=== PATIENT | male | born 1955 | race Caucasian/White ===

== ENCOUNTER 2018-08-05 07:23 | Inpatient (IN) | END 2018-08-10 11:45 | disposition home or self-care (01) | DRG 552 ==

== ENCOUNTER 2019-01-02 12:28 | Emergency (ER) | payer OTHER ==
[~2019-01-02] VITALS: Ht 167.6 cm; Wt 105.1 kg
[~2019-01-02 12:28] MED LIST: ALLO100T PO; HYDR-3498 PO; METH500T8 PO; NIFE30TA23 PO; TRAM50TA2 PO
[2019-01-02 12:54] VITALS: Ht 167.6 cm; Wt 105.1 kg
[2019-01-02] MEDS ORDERED: LIDOCAINE 1% (MPF) 5 ML VIAL INFIL ONE (15:00)
[2019-01-02] MEDS ORDERED: SULF1TAB31 PO (16:27)
--- NOTE | 2019-01-02 16:29 | ERD ---
ER Documentation Chief Complaint Chief Complaint left 2nd digit pain from injury 1 week ago. non diabetic; toe red and swoll HPI 63-year-old male with past medical history of hypertension, gout, osteoarthritis presents for left foot second toe pain and swelling times 1 week. He states that he had an incision and drainage about a month ago after stubbing his toe. His symptoms improved initially however they have returned. Notes that he is currently on azithromycin per dentist for some type of dental procedure. Denies fever or chills. ROS All systems reviewed and are negative except as per history of present illness. Medications Home Meds Active Scripts Sulfamethoxazole/Trimethoprim* (Bactrim Ds* Tablet) 1 Each Tablet, 1 TAB PO BID for abscess/cellulitis for 7 Days, #14 TAB Prov:DERIK FELIX DO 01/02/19 Allopurinol* (Allopurinol*) 100 Mg Tablet, 100 MG PO DAILY for 30 Days, TAB Prov:CAMILO ARRIOLA 10/27/14 Reported Medications Tramadol HCl (Tramadol HCl) 50 Mg Tablet, 50 MG PO DAILY, #60 TAB 08/08/18 Methocarbamol* (Methocarbamol*) 500 Mg Tablet, 500 MG PO DAILY, TAB 08/08/18 Nifedipine* (Nifedipine ER*) 30 Mg Tablet.sa, 30 MG PO DAILY, TAB.SA 08/08/18 Hydrocodone Bit-Acetaminophen* ([place]*) 5-325 Mg Tab, 1 TAB PO Q4H PRN for PAIN, TAB 10/24/14 Allergies Allergies: Coded Allergies: Penicillins (Verified Allergy, Unknown, 10/24/14) PMhx/Soc History of Surgery: Yes Anesthesia Reaction: No Hx Neurological Disorder: No Hx Respiratory Disorders: No Hx Cardiac Disorders: Yes (HTN) Hx Psychiatric Problems: No Hx Miscellaneous Medical Probl: Yes (HTN, gout, B knee pain, arthritis) Hx Tobacco Use: No Physical Exam Vitals Vital Signs Date Temp Pulse Resp B/P (MAP) Pulse Ox O2 O2 Flow FiO2 Time Delivery Rate 01/02/19 97.9 89 18 154/82 98 12:54 (106) Physical Exam Const: No acute distress Resp: Clear to auscultation bilaterally Cardio: Regular rate and rhythm, no murmurs, left dorsalis pedis pulse intact Abd: Soft, non tender, non distended. Normal bowel sounds Skin: No petechiae or rashes Back: No midline or flank tenderness Ext: left foot 2nd toes mass with underlying fluctuance with erythema and warmth. Neur: Awake and alert, sensation intact all toes of left foot Psych: Normal Mood and Affect Results 24 hrs Current Medications Medications Dose Sig/Hcerelle Start Time Status Last (Trade) Ordered Route PRN Stop Time Admin Dose Reason Admin Lidocaine 5 ml ONCE ONCE 01/02/19 DC (Xylocaine INFIL 15:00 1% (Mpf)) 01/02/19 15:01 Procedures/MDM Abscess Incision and Drainage with irrigation by me: Location: Left second toe Anesthesia: [Local 1% Lidocaine without epinephrine] Technique: [Irrigated. Disrupted loculations w/ instrumentation] Packing: [None] Complications: [Neurovascularly intact post procedure] 48 hour wound check. Scar minimization instructions given. Patient's skin symptoms have stabilized while they have been evaluated in the department and are appropriate for outpatient care and work up. Exam and w/u not consistent w/ sepsis, deep space infection, or foreign body. Medical Decision Making: Differential diagnosis includes but not limited to left second toe abscess, cellulitis, dermatitis, allergic reaction. Patient appeared well on physical exam. There was an abscess noted on the left 2nd toes left foot x-rays showed extensive destructive osseous erosions and soft tissue swelling throughout the midfoot and forefoot. Marked hallux valgus with near- complete lateral dislocation at the first metatarsophalangeal joint. Incision and drainage was done, see procedure noted above. Prescription(s): Patient given prescription for bactrim. advised regarding wound care. advised to return to ER in 48 hours for wound check. Patient advised to follow up with PCP in 1-2 days. Patient advised to return to ED for new or worsening symptoms. Patient stable on discharge from the ED. Disclaimer: Inadvertent spelling and grammatical errors are likely due to EHR/ dictation software use and do not reflect on the overall quality of patient care. Also, please note that the electronic time recorded on this note does not necessarily reflect the actual time of the patient encounter. Departure Diagnosis: Primary Impression: Abscess Condition: Fair Patient Instructions: Abscess, Incision And Drainage Referrals: COMMUNITY CLINICS YOU HAVE RECEIVED A MEDICAL SCREENING EXAM AND THE RESULTS INDICATE THAT YOU DO NOT HAVE A CONDITION THAT REQUIRES URGENT TREATMENT IN THE EMERGENCY DEPARTMENT. FURTHER EVALUATION AND TREATMENT OF YOUR CONDITION CAN WAIT UNTIL YOU ARE SEEN IN YOUR DOCTORS OFFICE WITHIN THE NEXT 1-2 DAYS. IT IS YOUR RESPONSIBILITY TO MAKE AN APPOINTMENT FOR FOLOW-UP CARE. IF YOU HAVE A PRIMARY DOCTOR --you should call your primary doctor and schedule an appointment IF YOU DO NOT HAVE A PRIMARY DOCTOR YOU CAN CALL OUR PHYSICIAN REFERRAL HOTLINE AT IF YOU CAN NOT AFFORD TO SEE A PHYSICIAN YOU CAN CHOSE FROM THE FOLLOWING [facility] [employer] [address] [facility] [address] [employer] [facility] [address] [facility] [address] [facility] [address] [facility]. [facility]. [address] Additional Instructions: Call your primary care doctor TOMORROW for an appointment during the next 1-2 days.See the doctor sooner or return here if your condition worsens before your appointment time. DERIK FELIX DO Jan 02, 2019 16:29
[2019-01-02 17:28] VITALS: BP 132/75; PULSE 73; RESP 18
== END 2019-01-02 17:18 | disposition home or self-care (01) ==
LOC: FTE 12:28
DX: L02.612 Cutaneous abscess of left foot (principal); I10 Essential (primary) hypertension
CPT/HCPCS: 10060; 73630; Z7610

== ENCOUNTER 2019-04-28 10:22 | Emergency (ER) | payer OTHER ==
[~2019-04-28] VITALS: Ht 170.2 cm; Wt 104.0 kg
[~2019-04-28 10:22] MED LIST changes: +SULF1TAB31 PO
[2019-04-28 10:26] VITALS: Ht 170.2 cm; Wt 104.0 kg
--- NOTE | 2019-04-28 11:29 | ERD ---
ER Documentation Chief Complaint Chief Complaint ABD PAIN X FEW MONTHS , RT LEG BUMP HPI This is a 64-year-old male with a past medical history of hypertension, chronic gouty arthritis, chronic abdominal pain who is presenting for reevaluation. The patient saw his primary doctor a few days ago, but he reports that the PCP primarily speaks Chinese and he could not understand what he was saying. The patient wanted reassessment from somebody who spoke better [place]ian. The patient endorses chronic gouty arthritis. He has been noticing multiple bumps in areas where tendons are. This is been ongoing for several months. It causes discomfort but no exquisite tenderness. The patient also endorses mild epigastric discomfort. He endorses a bloating sensation, exacerbated by eating. The patient sometimes goes to lay down after this, which does not help his symptoms. The patient does not currently endorse any abdominal pain, but he was hoping to get something to help with his discomfort after eating. The patient reports that he used to take indomethacin frequently for his gout, but this led to ulceration and bleeding. Since stopping the indomethacin, the patient reports that this has resolved. The patient otherwise feels well and has no acute complaints. The patient denies feeling sick recently. The patient denies fever or chills. The patient has had no headache or vision changes. The patient does not endorse neck or back pain. The patient denies lightheadedness or dizziness. The patient has had no chest pain or trouble breathing. The patient denies nausea or vomit ing. The patient denies changes to bowel movements or urination. The patient has had no focal deficits. The patient has had no weakness or numbness or tingling to the face or extremities. ROS All systems reviewed and are negative except as per history of present illness. Medications Home Meds Active Scripts Sulfamethoxazole/Trimethoprim* (Bactrim Ds* Tablet) 1 Each Tablet, 1 TAB PO BID for abscess/cellulitis for 7 Days, #14 TAB Prov:DERIK FELIX DO 01/02/19 Allopurinol* (Allopurinol*) 100 Mg Tablet, 100 MG PO DAILY for 30 Days, TAB Prov:CAMILO ARRIOLA 10/27/14 Reported Medications Tramadol HCl (Tramadol HCl) 50 Mg Tablet, 50 MG PO DAILY, #60 TAB 08/08/18 Methocarbamol* (Methocarbamol*) 500 Mg Tablet, 500 MG PO DAILY, TAB 08/08/18 Nifedipine* (Nifedipine ER*) 30 Mg Tablet.sa, 30 MG PO DAILY, TAB.SA 08/08/18 Hydrocodone Bit-Acetaminophen* ([place]*) 5-325 Mg Tab, 1 TAB PO Q4H PRN for PAIN, TAB 10/24/14 Allergies Allergies: Coded Allergies: Penicillins (Verified Allergy, Unknown, 10/24/14) PMhx/Soc History of Surgery: Yes Anesthesia Reaction: No Hx Neurological Disorder: No Hx Respiratory Disorders: No Hx Cardiac Disorders: Yes (HTN) Hx Psychiatric Problems: No Hx Miscellaneous Medical Probl: Yes (HTN, gout, B knee pain, arthritis) Hx Alcohol Use: Yes (last time 5mos ago) Hx Substance Use: Yes (one time "Speed") Hx Tobacco Use: Yes Smoking Status: Never smoker FmHx Family History: No diabetes Physical Exam Vitals Vital Signs Date Temp Pulse Resp B/P (MAP) Pulse Ox O2 O2 Flow FiO2 Time Delivery Rate 04/28/19 98.1 90 18 166/82 99 10:26 (110) Physical Exam Const: No acute distress Head: Atraumatic Eyes: Normal Conjunctiva ENT: Normal External Ears, Nose and Mouth. Neck: Full range of motion. No meningismus. Resp: Clear to auscultation bilaterally Cardio: Regular rate and rhythm, no murmurs Abd: Obese, soft, non tender, non distended. Normal bowel sounds Skin: No petechiae or rashes Back: No midline or flank tenderness Ext: No cyanosis, or edema. Calcific tendinosis evident on various tendons. Neur: Awake and alert Psych: Normal Mood and Affect Procedures/MDM MDM The patient presents for multiple complaints. The patient's primary complaint revolves around chronic abdominal bloating exacerbated by eating. GERD versus gastritis versus PUD are all possibilities. The patient is otherwise very well-appearing with no acute pain. He does not require emergent treatment, but may benefit from outpatient management. Prescriptions will be provided. At this time, the patient does not have any tenderness on exam. The patient does not have any evidence of peritonitis. The patient does not have clinical symptoms concerning for mesenteric ischemia or ischemic colitis. The patient does not have right upper quadrant tenderness, and I have low suspicion for gallstones, cholecystitis or biliary colic. The patient does not have any epigastric pain. I have low suspicion for gastritis, PUD or GERD. The patient does not have left upper quadrant tenderness. I have low suspicion for pancreatitis. The patient does not have any right lower quadrant tenderness, or periumbilical tenderness. I have low suspicion for appendicitis. The patient does not have suprapubic tenderness. I have decreased suspicion for cystitis. The patient does not have any left lower quadrant tenderness, and I have low suspicion for diverticulosis or diverticulitis. The patient does not have any flank tenderness. The patient does not have gross hematuria. I have decreased suspicion for nephrolithiasis or renal colic. The patient does not have any palpable pulsatile mass or severe abdominal pain radiating to the back. I have low suspicion for aortic aneurysm, dissection or rupture. The patient also wanted to have his extremities evaluated for bumps that he is noticed on various tendons. I do suspect calcific tendinosis. The patient may have an autoimmune disorder, such as rheumatoid arthritis. He does report having gouty arthritis. 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 I do not see any evidence of cellulitis or abscess or other soft tissue infection. I believe that the patient may follow-up with his physicians as scheduled. TREATMENT/DISPOSITION The patient did not require any emergent treatment. DISCHARGE Upon reevaluation of the patient, symptoms have improved. No emergent diagnoses were identified. At this time, I feel that the patient stable for discharge. The patient was instructed to follow-up with a primary care physician in 1-3 days. The patient will be given strict precautions with which to return to the emergency department. Prescriptions: Simethicone, Pepcid The patient's blood pressure was elevated at greater than 120/80 while in the emergency department. The patient was otherwise stable with no evidence of hypertensive urgency or emergency. The patient does not require admission for blood pressure control. I have discussed with the patient the risks of hypertension. I have instructed the patient to return to the ER for any new or worsening symptoms including chest pain, shortness of breath, headache, blurred vision, confusion, nausea, vomiting or LOC. I have advised the patient to follow up with the primary care physician for outpatient monitoring and treatment for hypertension in 1-3 days. Disclaimer: Inadvertent spelling and grammatical errors are likely due to EHR/dictation software use and do not reflect on the overall quality of patient care. Note that the electronic time recorded on this note does not necessarily reflect the actual time of the patient encounter. Departure Diagnosis: Primary Impression: Chronic abdominal pain Additional Impression: Calcific tendinitis Condition: Stable Patient Instructions: Abdominal Pain, Tendonitis Additional Instructions: Thank you for for coming to [facility] for your care today. Please ask your nurse or provider if you have questions about your care today and do not leave until all your questions have been answered. Please use any medications given as directed and follow-up with your doctor (or the doctor you were referred to) in the next 1-3 days. If you do not have a primary care doctor you may follow up at the [facility] or [facility] (listed below). You may also use motrin and tylenol as needed for fever and/or pain unless instructed otherwise by your provider or nurse. Indications for more urgent follow-up have been discussed, but you may return to the Emergency Department at ANY time for any worrisome or worsening symptoms. If you have abdominal pain, please know that no test or exam you received is perfect and you should follow up within 8 hours for continued pain. If you had any imaging studies today, such as an X-Ray or CT Scan, these studies will be reviewed later by a radiologist. You will be called if there are important findings that were not identified today, so make sure the contact information you provided at registration is correct. If you received any narcotic pain control medicine today, such as Vicodin, Morphine or Dilaudid, your coordination and judgment may be affected for a number of hours. Please do not drive or operate heavy machinery, and you may want someone to assist you at home. If you were given a prescription for narcotic medication, be aware that it is very addictive- use sparingly and only if necessary. PLEASE SEEK FURTHER EVALUATION AND MANAGEMENT AT YOUR DOCTORS OFFICE WITHIN THE NEXT 1-3 DAYS. IT IS YOUR RESPONSIBILITY TO MAKE AN APPOINTMENT FOR FOLOW-UP CAR E. IF YOU HAVE A PRIMARY DOCTOR, PLEASE CALL THEIR OFFICE TO SCHEDULE AN APPOINTMENT FOR FOLLOW UP. IF YOU DO NOT HAVE A PRIMARY DOCTOR YOU CAN CALL OUR PHYSICIAN REFERRAL HOTLINE AT IF YOU CAN NOT AFFORD TO SEE A PHYSICIAN YOU CAN CHOSE FROM THE FOLLOWING [facility] CLINICS: [facility] [address] [facility] [place] [address] [facility] [address] [facility] [address] [facility] [address] [facility] [address] [facility]. [facility]. [address] PEDRITO JANSEN MD Apr 28, 2019 11:29
[2019-04-28] MEDS ORDERED: SIME125C79 PO (11:32)
[2019-04-28] MEDS ORDERED: FAMO-96 PO (11:32)
[2019-04-28 11:56] VITALS: BP 154/77; PULSE 88; RESP 20
== END 2019-04-28 11:59 | disposition home or self-care (01) ==
LOC: E/R 10:22
DX: R10.9 Unspecified abdominal pain (principal); I10 Essential (primary) hypertension; M65.261 Calcific tendinitis, right lower leg; Z87.891 Personal history of nicotine dependence
CPT/HCPCS: 99283

== ENCOUNTER 2019-05-28 10:36 | Emergency (ER) | payer OTHER ==
[~2019-05-28] VITALS: Ht 172.7 cm; Wt 103.2 kg
[~2019-05-28 10:36] MED LIST changes: +FAMO-96 PO; +SIME125C79 PO
[2019-05-28 10:41] VITALS: Ht 172.7 cm; Wt 103.2 kg
--- NOTE | 2019-05-28 11:09 | ERD ---
ER Documentation Chief Complaint Chief Complaint abdominal discomfort x 6 months HPI The patient is a 64-year-old male, presenting to the ER because of epigastric abdominal discomfort after eating more than 6 months after eating. He denies weight loss, fever, chills, neck pain, chest pain, dyspnea, vomiting, dysuria, complains of intermittent constipation. He has history of amphetamine abuse, does not smoke, drinks socially. He has a colonoscopy scheduled coming up Past medical history: Hypertension, gout, chronic low back pain, chronic kidney disease, anemia, hemorrhoids Past surgical history: Colonoscopy about 10 years ago and he is having a repeat colonoscopy soon, left hip arthroplasty ROS All systems reviewed and are negative except as per history of present illness. Medications Home Meds Active Scripts Pantoprazole* (Protonix*) 40 Mg Tablet.dr, 40 MG PO DAILY, #20 TAB Prov:DERIK BEAN MD 05/28/19 Famotidine* (Pepcid*) 20 Mg Tablet, 20 MG PO BID for 14 Days, TAB Prov:PEDRITO PATEL MD 04/28/19 Simethicone (GAS RELIEF) 125 Mg Capsule, 125 MG PO AC A PRN for DISTENSION/GAS/BLOATING, #30 CAP Prov:PEDRITO PATEL MD 04/28/19 Sulfamethoxazole/Trimethoprim* (Bactrim Ds* Tablet) 1 Each Tablet, 1 TAB PO BID for abscess/cellulitis for 7 Days, #14 TAB Prov:DERIK FELIX DO 01/02/19 Allopurinol* (Allopurinol*) 100 Mg Tablet, 100 MG PO DAILY for 30 Days, TAB Prov:CAMILO ARRIOLA 10/27/14 Reported Medications Tramadol HCl (Tramadol HCl) 50 Mg Tablet, 50 MG PO DAILY, #60 TAB 08/08/18 Methocarbamol* (Methocarbamol*) 500 Mg Tablet, 500 MG PO DAILY, TAB 08/08/18 Nifedipine* (Nifedipine ER*) 30 Mg Tablet.sa, 30 MG PO DAILY, TAB.SA 08/08/18 Hydrocodone Bit-Acetaminophen* ([place]*) 5-325 Mg Tab, 1 TAB PO Q4H PRN for PAIN, TAB 10/24/14 Allergies Allergies: Coded Allergies: Penicillins (Verified Allergy, Unknown, 04/28/19) PMhx/Soc History of Surgery: Yes Anesthesia Reaction: No Hx Neurological Disorder: No Hx Respiratory Disorders: No Hx Cardiac Disorders: Yes (HTN) Hx Psychiatric Problems: No Hx Miscellaneous Medical Probl: Yes (HTN, gout, B knee pain, arthritis) Hx Alcohol Use: Yes (last time 5mos ago) Hx Substance Use: Yes (one time "Speed") Hx Tobacco Use: Yes Physical Exam Vitals Vital Signs Date Temp Pulse Resp B/P (MAP) Pulse Ox O2 O2 Flow FiO2 Time Delivery Rate 05/28/19 98.2 82 18 147/73 99 10:41 (97) Physical Exam Const: No acute distress. Head: Atraumatic. Eyes: Normal Conjunctiva. ENT: Normal External Ears, Nose and Mouth. Neck: Full range of motion. No meningismus. Resp: Clear to auscultation bilaterally. Cardio: Regular rate and rhythm. Abd: Soft, non distended, normal bowel sounds, non tender. Skin: No petechiae or rashes. Back: No midline or flank tenderness. Ext: No cyanosis, or edema. Neur: Awake and alert. No focal deficit Psych: Normal Mood and Affect. Procedures/MDM MEDICAL MAKING DECISION: The patient is a 64-year-old male, presenting with chronic epigastric abdominal pain of unclear etiology, is stable for outpatient follow-up The differential diagnoses considered include but are not limited to cholelithiasis, cholecystitis, choledocholithiasis, cholangitis, pancreatitis, hepatitis, gastritis, peptic ulcer disease, gastric ulcer, appendicitis, cystit is, diverticulitis, partial small bowel obstruction. Departure Diagnosis: Primary Impression: Abdominal pain Condition: Good Comments He was discharged with Protonix I discussed the findings with the patient. I advised the patient to follow-up with the primary physician in about 1-2 days for reevaluation and referral to gastroenterology for EGD, sooner if needed and return if any concern. Disclaimer: Inadvertent spelling and grammatical errors are likely due to EHR/dictation software use and do not reflect on the overall quality of patient care. Also, please note that the electronic time recorded on this note does not necessarily reflect the actual time of the patient encounter. DERIK BEAN MD May 28, 2019 11:09
[2019-05-28] MEDS ORDERED: PANT40TA3 PO (11:17)
[2019-05-28 12:00] VITALS: BP 153/75; PULSE 78; RESP 17
== END 2019-05-28 12:01 | disposition home or self-care (01) ==
LOC: E/R 10:36
DX: R10.13 Epigastric pain (principal); I12.9 Hypertensive chronic kidney disease with stage 1 through stage 4 chronic kidney disease, or unspecified chronic kidney disease; N18.9 Chronic kidney disease, unspecified; Z87.891 Personal history of nicotine dependence
CPT/HCPCS: 99283

== ENCOUNTER 2019-06-06 07:50 | Emergency (ER) | payer OTHER ==
[~2019-06-06] VITALS: Ht 167.6 cm; Wt 103.0 kg
[~2019-06-06 07:50] MED LIST changes: +MUPI22OI2 TOP; +PANT40TA3 PO; +TRIA15CR55 TOP
[2019-06-06 07:55] VITALS: BP 165/79; PULSE 61; RESP 20; Ht 167.6 cm; Wt 103.0 kg
--- NOTE | 2019-06-06 09:32 | ERD ---
ER Documentation Chief Complaint Chief Complaint right thumb and 4th finger pain/injury HPI 64-year-old male presenting with pain to his right thumb and fourth right finger. Patient has a history of gout but also noticed that he has some nodules on his finger that are irritating. He has not use any medications on the area. [place] other medical problems. NKDA. Surgical history denies. Social history denies ROS All systems reviewed and are negative except as per history of present illness. Medications Home Meds Active Scripts Mupirocin* (Bactroban*) 2% -22 Gram Oint...g., 1 APPLIC TOP BID for 7 Days, EA Prov:JOSE OLVERA PA-C 06/06/19 Pantoprazole* (Protonix*) 40 Mg Tablet.dr, 40 MG PO DAILY, #20 TAB Prov:DERIK BEAN MD 05/28/19 Famotidine* (Pepcid*) 20 Mg Tablet, 20 MG PO BID for 14 Days, TAB Prov:PEDRITO PATEL MD 04/28/19 Simethicone (GAS RELIEF) 125 Mg Capsule, 125 MG PO AC A PRN for DISTENSION/GAS/BLOATING, #30 CAP Prov:PEDRITO PATEL MD 04/28/19 Sulfamethoxazole/Trimethoprim* (Bactrim Ds* Tablet) 1 Each Tablet, 1 TAB PO BID for abscess/cellulitis for 7 Days, #14 TAB Prov:DERIK FELIX DO 01/02/19 Allopurinol* (Allopurinol*) 100 Mg Tablet, 100 MG PO DAILY for 30 Days, TAB Prov:CAMILO ARRIOLA 10/27/14 Reported Medications Tramadol HCl (Tramadol HCl) 50 Mg Tablet, 50 MG PO DAILY, #60 TAB 08/08/18 Methocarbamol* (Methocarbamol*) 500 Mg Tablet, 500 MG PO DAILY, TAB 08/08/18 Nifedipine* (Nifedipine ER*) 30 Mg Tablet.sa, 30 MG PO DAILY, TAB.SA 08/08/18 Hydrocodone Bit-Acetaminophen* (Loraine*) 5-325 Mg Tab, 1 TAB PO Q4H PRN for PAIN, TAB 10/24/14 Allergies Allergies: Coded Allergies: Penicillins (Verified Allergy, Unknown, 04/28/19) PMhx/Soc History of Surgery: Yes Anesthesia Reaction: No Hx Neurological Disorder: No Hx Respiratory Disorders: No Hx Cardiac Disorders: Yes (HTN) Hx Psychiatric Problems: No Hx Miscellaneous Medical Probl: Yes (HTN, gout, B knee pain, arthritis) Hx Alcohol Use: Yes (last time 5mos ago) Hx Substance Use: Yes Hx Tobacco Use: Yes Smoking Status: Current some day smoker FmHx Family History: No diabetes, No coronary disease, No other Physical Exam Vitals Vital Signs Date Temp Pulse Resp B/P (MAP) Pulse Ox O2 O2 Flow FiO2 Time Delivery Rate 06/06/19 97.2 61 20 165/79 99 07:55 (107) Physical Exam GENERAL: The patient is well-appearing, well-nourished, in no acute distress CHEST: Clear to auscultation bilaterally. There are no rales, wheezes or rhonchi. HEART: Regular rate and rhythm. No murmurs, clicks, rubs or gallops. EXTREMITIES: Deformities noted of the fingers which are chronic due to chronic gout. NEUROLOGIC: Alert and oriented. Cranial nerves II through XII intact. Motor strength in all 4 extremities with 5 out of 5 strength. SKIN: Small nodules noted over the finger with some scaling of the skin. Procedures/MDM MDM: 64-year-old male presenting with bumps on his fingers. Patient looks to have dyshidrotic eczema which he has irritated due to picking and covering with Band-Aids. Patient is recommended to apply some moisturizing creams and I will treat for antibiotic cream given the look questionably infected. I have low suspicion for exercise synovitis or other complications. Patient is discharged with strict ER precautions and told to follow-up with primary care. Patient is told symptoms change or worsen to return immediately to the ER. All questions answered at discharge Departure Diagnosis: Primary Impression: Pain of finger Condition: Stable Patient Instructions: Atopic Dermatitis (Eczema) Referrals: COMMUNITY CLINICS YOU HAVE RECEIVED A MEDICAL SCREENING EXAM AND THE RESULTS INDICATE THAT YOU DO NOT HAVE A CONDITION THAT REQUIRES URGENT TREATMENT IN THE EMERGENCY DEPARTMENT. FURTHER EVALUATION AND TREATMENT OF YOUR CONDITION CAN WAIT UNTIL YOU ARE SEEN IN YOUR DOCTORS OFFICE WITHIN THE NEXT 1-2 DAYS. IT IS YOUR RESPONSIBILITY TO MAKE AN APPOINTMENT FOR FOLOW-UP CARE. IF YOU HAVE A PRIMARY DOCTOR --you should call your primary doctor and schedule an appointment IF YOU DO NOT HAVE A PRIMARY DOCTOR YOU CAN CALL OUR PHYSICIAN REFERRAL HOTLINE AT IF YOU CAN NOT AFFORD TO SEE A PHYSICIAN YOU CAN CHOSE FROM THE FOLLOWING [facility] [address] [facility] [address] [facility] [address] [facility] [address] [facility] [address] [facility]. [facility]. [address] Additional Instructions: FOLLOW UP WITH YOUR PRIMARY CARE PHYSICIAN TOMORROW.Return to this facility if you are not improving as expected. JOSE OLVERA PA-C Jun 06, 2019 09:32
== END 2019-06-06 08:35 | disposition home or self-care (01) ==
LOC: FTE 07:50
DX: M79.644 Pain in right finger(s) (principal); I10 Essential (primary) hypertension; F17.210 Nicotine dependence, cigarettes, uncomplicated
CPT/HCPCS: 99283

== ENCOUNTER 2019-06-13 08:49 | Emergency (ER) | payer OTHER ==
[~2019-06-13] VITALS: Ht 152.4 cm; Wt 90.0 kg
[2019-06-13 08:51] VITALS: BP 154/72; PULSE 72; RESP 18; Ht 152.4 cm; Wt 90.0 kg
--- NOTE | 2019-06-13 10:47 | ERD ---
ER Documentation Chief Complaint Chief Complaint rash/blisters on hand and feet HPI 64-year-old male presenting with rash and blisters to bilateral hands. Patient has a long history of gout and states that he has developed blisters over the arthritic gout lesions of his fingers. He has been applying mupirocin with alleviation of symptoms and is requesting more medication. He does have an appointment coming up with his primary doctor for evaluation. He denies any bleeding or purulence from the affected sites. Medical history is gout. NKDA. Surgical history denies. Social history denies ROS All systems reviewed and are negative except as per history of present illness. Medications Home Meds Active Scripts Mupirocin* (Bactroban*) 2% -22 Gram Oint...g., 1 APPLIC TOP BID for 7 Days, EA Prov:JOSE OLVERA PA-C 06/13/19 Mupirocin* (Bactroban*) 2% -22 Gram Oint...g., 1 APPLIC TOP BID for 7 Days, EA Prov:JOSE OLVERA PA-C 06/06/19 Pantoprazole* (Protonix*) 40 Mg Tablet., 40 MG PO DAILY, #20 TAB Prov:DERIK BEAN MD 05/28/19 Famotidine* (Pepcid*) 20 Mg Tablet, 20 MG PO BID for 14 Days, TAB Prov:PEDRITO PATEL MD 04/28/19 Simethicone (GAS RELIEF) 125 Mg Capsule, 125 MG PO AC A PRN for DISTENSION/GAS/BLOATING, #30 CAP Prov:PEDRITO PATEL MD 04/28/19 Sulfamethoxazole/Trimethoprim* (Bactrim Ds* Tablet) 1 Each Tablet, 1 TAB PO BID for abscess/cellulitis for 7 Days, #14 TAB Prov:DERIK FELIX DO 01/02/19 Allopurinol* (Allopurinol*) 100 Mg Tablet, 100 MG PO DAILY for 30 Days, TAB Prov:CAMILO ARRIOLA 10/27/14 Reported Medications Tramadol HCl (Tramadol HCl) 50 Mg Tablet, 50 MG PO DAILY, #60 TAB 08/08/18 Methocarbamol* (Methocarbamol*) 500 Mg Tablet, 500 MG PO DAILY, TAB 08/08/18 Nifedipine* (Nifedipine ER*) 30 Mg Tablet.sa, 30 MG PO DAILY, TAB.SA 08/08/18 Hydrocodone Bit-Acetaminophen* ([place]*) 5-325 Mg Tab, 1 TAB PO Q4H PRN for PAIN, TAB 10/24/14 Allergies Allergies: Coded Allergies: Penicillins (Verified Allergy, Unknown, 06/13/19) PMhx/Soc Medical and Surgical Hx: pt denies Medical Hx, pt denies Surgical Hx History of Surgery: Yes Anesthesia Reaction: No Hx Neurological Disorder: No Hx Respiratory Disorders: No Hx Cardiac Disorders: Yes (HTN) Hx Psychiatric Problems: No Hx Miscellaneous Medical Probl: Yes (HTN, gout, B knee pain, arthritis) Hx Alcohol Use: Yes (last time 5mos ago) Hx Substance Use: Yes Hx Tobacco Use: Yes Smoking Status: Current every day smoker FmHx Family History: No diabetes, No coronary disease, No other Physical Exam Vitals Vital Signs Date Temp Pulse Resp B/P (MAP) Pulse Ox O2 O2 Flow FiO2 Time Delivery Rate 06/13/19 98.1 72 18 154/72 99 08:51 (99) Physical Exam GENERAL: The patient is well-appearing, well-nourished, in no acute distress HEENT: Atraumatic. Conjunctivae are pink. Pupils equal, round, and reactive to light. There is no scleral icterus. Tympanic membranes clear bilaterally. Oropharynx clear. N CHEST: Clear to auscultation bilaterally. There are no rales, wheezes or rhonchi. HEART: Regular rate and rhythm. No murmurs, clicks, rubs or gallops. EXTREMITIES: Equal pulses bilaterally. There is no peripheral clubbing, cyanosis or edema. No focal swelling or erythema. Full range of motion. Grossly neurovascularly intact. NEUROLOGIC: Alert and oriented. Cranial nerves II through XII intact. Motor strength in all 4 extremities with 5 out of 5 strength. Sensation grossly intact. Normal speech and gait. SKIN: Listers noted to hands that are healing. No vesicles or pustules. No active bleeding. Procedures/MDM MDM: 64-year-old male presenting with blisters to hands. I believe this is a secondary reaction to his arthritic hands due to gout. I have low suspicion for infectious process. Patient is discharged with strict ER precautions and told to follow-up with primary care within 1 to 2 days for close evaluation. Patient is told symptoms change or worsen to return immediately to the ER. All questions answered at discharge Departure Diagnosis: Primary Impression: Gout Additional Impression: Rash and other nonspecific skin eruption Condition: Stable Patient Instructions: Self-Care for Skin Rashes Referrals: [facility] YOU HAVE RECEIVED A MEDICAL SCREENING EXAM AND THE RESULTS INDICATE THAT YOU DO NOT HAVE A CONDITION THAT REQUIRES URGENT TREATMENT IN THE EMERGENCY DEPARTMENT. FURTHER EVALUATION AND TREATMENT OF YOUR CONDITION CAN WAIT UNTIL YOU ARE SEEN IN YOUR DOCTORS OFFICE WITHIN THE NEXT 1-2 DAYS. IT IS YOUR RESPONSIBILITY TO MAKE AN APPOINTMENT FOR FOLOW-UP CARE. IF YOU HAVE A PRIMARY DOCTOR --you should call your primary doctor and schedule an appointment IF YOU DO NOT HAVE A PRIMARY DOCTOR YOU CAN CALL OUR PHYSICIAN REFERRAL HOTLINE AT IF YOU CAN NOT AFFORD TO SEE A PHYSICIAN YOU CAN CHOSE FROM THE FOLLOWING [facility] [address] [facility]. [facility] [address] [facility] [facility] [address] [facility] [address] [facility]. [facility] [address] [facility]. [facility]. [address] Additional Instructions: FOLLOW UP WITH YOUR PRIMARY CARE PHYSICIAN TOMORROW.Return to this facility if you are not improving as expected. JOSE OLVERA PA-C Jun 13, 2019 10:47
== END 2019-06-13 09:20 | disposition home or self-care (01) ==
LOC: FTE 08:49
DX: M10.9 Gout, unspecified (principal); I10 Essential (primary) hypertension; F17.210 Nicotine dependence, cigarettes, uncomplicated
CPT/HCPCS: 99283

== ENCOUNTER 2019-06-20 12:53 | Emergency (ER) | payer OTHER ==
[~2019-06-20] VITALS: Ht 172.7 cm; Wt 95.5 kg
[2019-06-20 12:57] VITALS: BP 139/77; PULSE 84; RESP 20; Ht 172.7 cm; Wt 95.5 kg
--- NOTE | 2019-06-20 13:13 | ERD ---
ER Documentation Chief Complaint Chief Complaint skin rash - drink alcohol today ( 1 beer) HPI 64-year-old male presents with an itchy rash on his index and middle finger for the last week. He believes it may have started after having his carpet cleaned. He has a history of gout and chronic joint swelling. Denies any additional rashes other than his fingers. ROS All systems reviewed and are negative except as per history of present illness. Medications Home Meds Active Scripts Triamcinolone Acetonide (Triamcinolone Acetonide) 0.1% - 15 Gm Cream.gm., 1 APPLIC TOP QID for 7 Days, #1 TUB Prov:FILIPPO STANLEY MD 06/20/19 Mupirocin* (Bactroban*) 2% -22 Gram Oint...g., 1 APPLIC TOP BID for 7 Days, EA Prov:JOSE OLVERA PA-C 06/13/19 Mupirocin* (Bactroban*) 2% -22 Gram Oint...g., 1 APPLIC TOP BID for 7 Days, EA Prov:JOSE OLVERA PA-C 06/06/19 Pantoprazole* (Protonix*) 40 Mg Tablet.dr, 40 MG PO DAILY, #20 TAB Prov:DERIK BEAN MD 05/28/19 Famotidine* (Pepcid*) 20 Mg Tablet, 20 MG PO BID for 14 Days, TAB Prov:PEDRITO PATEL MD 04/28/19 Simethicone (GAS RELIEF) 125 Mg Capsule, 125 MG PO AC A PRN for DISTENSION/GAS/BLOATING, #30 CAP Prov:PEDRITO PATEL MD 04/28/19 Sulfamethoxazole/Trimethoprim* (Bactrim Ds* Tablet) 1 Each Tablet, 1 TAB PO BID for abscess/cellulitis for 7 Days, #14 TAB Prov:DERIK FELIX DO 01/02/19 Allopurinol* (Allopurinol*) 100 Mg Tablet, 100 MG PO DAILY for 30 Days, TAB Prov:CAMILO ARRIOLA 10/27/14 Reported Medications Tramadol HCl (Tramadol HCl) 50 Mg Tablet, 50 MG PO DAILY, #60 TAB 08/08/18 Methocarbamol* (Methocarbamol*) 500 Mg Tablet, 500 MG PO DAILY, TAB 08/08/18 Nifedipine* (Nifedipine ER*) 30 Mg Tablet.sa, 30 MG PO DAILY, TAB.SA 08/08/18 Hydrocodone Bit-Acetaminophen* ([place]*) 5-325 Mg Tab, 1 TAB PO Q4H PRN for PAIN, TAB 10/24/14 Allergies Allergies: Coded Allergies: Penicillins (Verified Allergy, Unknown, 06/13/19) PMhx/Soc History of Surgery: Yes Anesthesia Reaction: No Hx Neurological Disorder: No Hx Respiratory Disorders: No Hx Cardiac Disorders: Yes (HTN) Hx Psychiatric Problems: No Hx Miscellaneous Medical Probl: Yes (HTN, gout, B knee pain, arthritis) Hx Alcohol Use: Yes (last time 5mos ago) Hx Substance Use: Yes Hx Tobacco Use: Yes Smoking Status: Never smoker FmHx Family History: No diabetes, No coronary disease, No other Physical Exam Vitals Vital Signs Date Temp Pulse Resp B/P (MAP) Pulse Ox O2 O2 Flow FiO2 Time Delivery Rate 06/20/19 98.8 84 20 139/77 98 12:57 (97) Physical Exam Const: No acute distress Head: Atraumatic Eyes: Normal Conjunctiva ENT: Normal External Ears, Nose and Mouth. Neck: Full range of motion. No meningismus. Resp: Clear to auscultation bilaterally Cardio: Regular rate and rhythm, no murmurs Abd: Soft, non tender, non distended. Normal bowel sounds Skin: No petechiae or purpura. Slight excoriated clear vesicular eruptions on the index and middle finger. No serpiginous lesions, erythema, discharge or bleeding. Cap refill less than 2 seconds. Bilateral upper extremities neurovascular intact. Back: No midline or flank tenderness Ext: No cyanosis, or edema Neur: Awake and alert Psych: Normal Mood and Affect Procedures/MDM Patient presents with an itchy rash on his index and middle finger mostly on the right hand and slightly on the left index finger. Signs or symptoms are consistent with dyshidrotic eczema. Current signs or symptoms do not suggest scabies, cellulitis, ischemia, deficits, tenosynovitis, osteo myelitis, and there is no signs of fracture dislocation. Patient will be treated with triamcinolone, further observation at home and return precautions. He should return for worsening redness, fevers, new worsening symptoms with primary care doctor. The patient was stable with no new complaints during the ER course. Clinically, there is no current evidence to suggest meningitis, sepsis, acute abdomen, pneumonia, stroke, acute coronary syndrome, pulmonary embolism, aortic dissection or any other emergent condition appearing to require further evaluation or hospitalization. Patient counseled regarding my diagnostic impression and care plan. Prior to discharge all questions answered. Pt agrees with treatment plan and understands strict return precautions. Pt is instructed to follow up with primary care provider within 24-48 hours. Precautionary instructions provided including instructions to return to the ER if not improving or for any worsening or changing symptoms or concerns. Disclaimer: Inadvertent spelling and grammatical errors are likely due to EHR/dictation software use and do not reflect on the overall quality of patient care. Also, please note that the electronic time recorded on this note does not necessarily reflect the actual time of the patient encounter. Departure Diagnosis: Primary Impression: Rash Condition: Stable Patient Instructions: Atopic Dermatitis (Eczema) Referrals: DOCTOR,NOT ON STAFF (PCP) Additional Instructions: Rash appears to be contact dermatitis or eczema possibly due to chemicals. Recheck for worsening rashes, bleeding, redness, new worsening symptoms. FILIPPO STANLEY MD Jun 20, 2019 13:13
== END 2019-06-20 13:13 | disposition home or self-care (01) ==
LOC: E/R 12:53
DX: R21 Rash and other nonspecific skin eruption (principal); I10 Essential (primary) hypertension; Z87.891 Personal history of nicotine dependence
CPT/HCPCS: 99283

== ENCOUNTER 2019-09-05 08:14 | Emergency (ER) | payer OTHER ==
[~2019-09-05] VITALS: Ht 167.6 cm; Wt 105.1 kg
[~2019-09-05 08:14] MED LIST changes: -ALLO100T PO; +BACITUD TOP; +CLIN300C10 PO; +CYCL10TA7 PO; -FAMO-96 PO; +FLUT9.9S NASAL; -HYDR-3498 PO; -METH500T8 PO; -NIFE30TA23 PO; +OMEP20CA17 PO; +PRED20TA PO; -TRAM50TA2 PO
[2019-09-05 08:22] VITALS: Ht 167.6 cm; Wt 105.1 kg
[2019-09-05] MEDS ORDERED: NICARDipine HCL 30 MG CAPSULE PO ONE (09:00)
[2019-09-05 09:36] VITALS: BP 146/79; PULSE 59; RESP 22
== END 2019-09-05 09:38 | disposition home or self-care (01) ==
LOC: FTE 08:14
DX: I10 Essential (primary) hypertension (principal); F17.210 Nicotine dependence, cigarettes, uncomplicated
CPT/HCPCS: Z7502; Z7610; 99283